=== PATIENT | female | born 1940 | race Caucasian/White ===

== ENCOUNTER 2021-02-12 09:43 | Inpatient (IN) | payer MEDICARE, OTHER ==
--- NOTE | 2021-02-12 19:43 | PCM.HP.2 ---
H&P History of Present Illness - General Date of Service: 02/12/21 - History of Present Illness Initial Comments - Free Text/Narative: 80 y female with pmh of COPD, and HTN who presented to [facility] for a refill of her gabapenin. She was noted to desating to 78% on room air. She was requiring 3 liters of Oxygen to maintain sats of 90%. She had a work up including CBC, BMP, and CXR. She was treated for a COPD exacerbation with solumedrol and duonebs with improvement in her symptoms. Patient does admit to a week long symptoms of productive cough, wheezing and shortness of breath. As she was not able to be weaned off the oxygen patient was directly admitted. - Related Data Allergies/Adverse Reactions: Allergies Allergy/AdvReac Type Severity Reaction Status Date / Time Sulfa (Sulfonamide Allergy Hives Verified 02/12/21 18:01 Antibiotics) Home Medications: Home Meds Albuterol [Ventolin HFA] 2 puff INH Q4HR PRN 02/12/21 [History] Furosemide 0.5 tab PO DAILY 02/12/21 [History] Gabapentin [Neurontin] 300 mg PO DAILY 02/12/21 [History] Levofloxacin 1 tab PO DAILY 02/12/21 [History] Tiotropium Br/Olodaterol HCl [Stiolto Respimat Inhal [place]] 2 puff INH DAILY 02/12/21 [History] amLODIPine [Norvasc] 2.5 mg PO DAILY 02/12/21 [History] predniSONE [Prednisone] 40 mg PO DAILY 02/12/21 [History] Past Medical History Cardiovascular History: Reports: Hypertension Respiratory History: Reports: COPD Gastrointestinal History: Reports: Diverticulosis DIRECTOR COMMUNICATIONS History: Reports: Musculoskeletal History: Reports: None Psychiatric History: Reports: Depression Endocrine/Metabolic History: Reports: None Hematologic History: Reports: Anemia - Infectious Disease History Infectious Disease History: Reports: Chicken Pox - Past Surgical History GI Surgical History: Reports: Cholecystectomy Social & Family History - Tobacco Use Tobacco Use Status *Q: Former Tobacco User Years of Tobacco use: 35 Used Tobacco, but Quit: Yes Month/Year Tobacco Last Used: 08/2015 - Caffeine Use Caffeine Use: Reports: Coffee - Recreational Drug Use Recreational Drug Use: No H&P Review of Systems - Review of Systems: Review Of Systems: Comprehensive ROS is negative, except as noted in HPI. Exam - Exam Exam: See Below - Vital Signs Vital Signs: Last Vital Signs Temp 36.6 C 02/12/21 17:00 Pulse 96 02/12/21 17:00 Resp 18 02/12/21 17:00 BP 145/83 H 02/12/21 17:00 Pulse Ox 93 L 02/12/21 17:02 Weight: 57.606 kg - Exam General: Alert, Oriented HEENT: Mucosa Moist & [place] Neck: Supple, Trachea Midline Lungs: Clear to Auscultation, Normal Respiratory Effort Cardiovascular: Regular Rate, Regular Rhythm GI/Abdominal Exam: Soft, Non-Tender, No Distention Extremities: Non-Tender, No Pedal Edema Skin: Warm, Dry, Intact Neurological: Cranial Nerves Intact - Patient Data Result Diagrams: 02/13/21 05:07 02/13/21 05:07 Sepsis Event Note - Evaluation Sepsis Screening Result: No Definite Risk - Focused Exam Vital Signs: Vital Signs Temp Pulse Resp BP Pulse Ox 02/12/21 17:02 93 L 02/12/21 17:00 36.6 C 96 18 145/83 H 71 L Problem List Initiated/Reviewed/Updated: Yes Orders Last 24hrs: Active Orders 24 hr Category Date Time Status Regular Diet [DIET] Diet 02/12/21 Dinner Active Azithromycin [Zithromax] Med 02/12/21 19:45 Ordered 500 mg PO Q24H Furosemide [Lasix] Med 02/13/21 09:00 Ordered 20 mg PO DAILY Gabapentin [Neurontin] Med 02/13/21 09:00 Ordered 300 mg PO DAILY amLODIPine [Norvasc] Med 02/13/21 09:00 Ordered 2.5 mg PO DAILY methylPREDNISolone Sod Succ [Solu-MEDROL] Med 02/12/21 21:00 Ordered 125 mg IVPUSH Q12H Medication Orders Amlodipine Besylate (Amlodipine 2.5 Mg Tab) 2.5 mg PO DAILY [facility] Azithromycin (Azithromycin 250 Mg Tab) 500 mg PO Q24H [facility] Furosemide (Furosemide 40 Mg Tab) 20 mg PO DAILY [facility] Gabapentin (Gabapentin 300 Mg Cap) 300 mg PO DAILY [facility] Methylprednisolone Sodium Succinate (Methylprednisolone Sodium Succinate 125 Mg/2 Ml Sdv) 125 mg IVPUSH Q12H [facility] Assessment/Plan Comment:: 80 yo female admitted for COPD exacerbation. We will treat with solumedrol, duonebs, and azithromycin.
[2021-02-12] MEDS: Azithromycin 250 MG Tab PO SCH (20:21)
[2021-02-12] MEDS: methylPREDNISolone Sodium Succinate 125 MG/2 ML SDV IVPUSH SCH (20:22)
[2021-02-12] MEDS: Gabapentin 300 MG Cap PO SCH (22:51)
[2021-02-12] MEDS: Albuterol/Ipratropium 3.0-0.5 MG/3 ML Neb Soln NEB SCH (23:01)
[2021-02-13] MEDS: Albuterol/Ipratropium 3.0-0.5 MG/3 ML Neb Soln NEB SCH ×5 (00:09→23:00)
[2021-02-13 05:49] LABS: BLOOD UREA NITROGEN,BUN 18 mg/dL (7.0-18.0); CHLORIDE,CL 103 mmol/L (98-107); GLUCOSE RANDOM 148 mg/dL (74-106); POTASSIUM,K 4.6 mmol/L (3.5-5.1); SODIUM,NA 140 mmol/L (136-145)
--- NOTE | 2021-02-13 09:48 | PCM.PN ---
- General Info Date of Service: 02/13/21 - Review of Systems Systems Review Comment:: shortness of breath has improved - Patient Data Vitals - Most Recent: Last Vital Signs Temp 36.0 C L 02/13/21 05:12 Pulse 78 02/13/21 05:12 Resp 15 02/13/21 05:12 BP 130/66 02/13/21 05:12 Pulse Ox 92 L 02/13/21 05:12 Weight - Most Recent: 57.606 kg I&O - Last 24 Hours: Intake & Output 02/12/21 02/13/21 02/13/21 22:59 06:59 14:59 Intake Total 600 Balance 600 Lab Results Last 24 Hours: Laboratory Results - last 24 hr 02/13/21 02/13/21 Range/Units 05:07 05:07 WBC 8.93 (4.0-11.0) K/uL RBC 5.25 (4.30-5.90) M/uL Hgb 16.6 H (12.0-16.0) g/dL Hct 50.1 H (36.0-46.0) % MCV 95.4 (80.0-98.0) fL MCH 31.6 (27.0-32.0) pg MCHC 33.1 (31.0-37.0) g/dL RDW Std Deviation 45.0 (28.0-62.0) fl RDW Coeff of Jennifer 13 (11.0-15.0) % Plt Count 299 (150-400) K/uL MPV 9.70 (7.40-12.00) fL Neut % (Auto) 92.6 H (48.0-80.0) % Lymph % (Auto) 6.6 L (16.0-40.0) % Wilcox % (Auto) 0.8 (0.0-15.0) % Eos % (Auto) 0.0 (0.0-7.0) % Baso % (Auto) 0.0 (0.0-1.5) % Neut # (Auto) 8.3 H (1.4-5.7) K/uL Lymph # (Auto) 0.6 (0.6-2.4) K/uL Wilcox # (Auto) 0.1 (0.0-0.8) K/uL Eos # (Auto) 0.0 (0.0-0.7) K/uL Baso # (Auto) 0.0 (0.0-0.1) K/uL Nucleated RBC % 0.0 /100WBC Nucleated RBCs # 0 K/uL Sodium 140 (136-145) mmol/L Potassium 4.6 (3.5-5.1) mmol/L Chloride 103 (98-107) mmol/L Carbon Dioxide 35.0 H (21.0-32.0) mmol/L BUN 18 (7.0-18.0) mg/dL Creatinine 0.8 (0.6-1.0) mg/dL Est Cr Clr Drug Dosing 43.73 mL/min Estimated GFR (MDRD) > 60.0 ml/min Glucose 148 H (74-106) mg/dL Calcium 8.6 (8.5-10.1) mg/dL Med Orders - Current: Current Medications Albuterol/Ipratropium (Albuterol/Ipratropium 3.0-0.5 Mg/3 Ml Neb Soln) 3 ml NEB Q6HRRT [facility] Last Admin: 02/13/21 06:00 Dose: 3 ml Documented by: Amlodipine Besylate (Amlodipine 2.5 Mg Tab) 2.5 mg PO DAILY [facility] Azithromycin (Azithromycin 250 Mg Tab) 500 mg PO Q24H [facility] Last Admin: 02/12/21 20:21 Dose: 500 mg Documented by: Furosemide (Furosemide 20 Mg Tab) 20 mg PO DAILY [facility] Gabapentin (Gabapentin 300 Mg Cap) 300 mg PO BEDTIME [facility] Last Admin: 02/12/21 22:51 Dose: 300 mg Documented by: Methylprednisolone Sodium Succinate (Methylprednisolone Sodium Succinate 125 Mg/2 Ml Sdv) 125 mg IVPUSH Q12H [facility] Last Admin: 02/12/21 20:22 Dose: 125 mg Documented by: - Exam General: Alert, Oriented Neck: Supple Lungs: Clear to Auscultation, Normal Respiratory Effort Cardiovascular: Regular Rate, Regular Rhythm GI/Abdominal Exam: Soft, Non-Tender, No Distention Extremities: No Pedal Edema Skin: Warm, Dry, Intact Neurological: No New Focal Deficit - Patient Data Lab Results Last 24 hrs: Laboratory Results - last 24 hr 02/13/21 02/13/21 Range/Units 05:07 05:07 WBC 8.93 (4.0-11.0) K/uL RBC 5.25 (4.30-5.90) M/uL Hgb 16.6 H (12.0-16.0) g/dL Hct 50.1 H (36.0-46.0) % MCV 95.4 (80.0-98.0) fL MCH 31.6 (27.0-32.0) pg MCHC 33.1 (31.0-37.0) g/dL RDW Std Deviation 45.0 (28.0-62.0) fl RDW Coeff of Jennifer 13 (11.0-15.0) % Plt Count 299 (150-400) K/uL MPV 9.70 (7.40-12.00) fL Neut % (Auto) 92.6 H (48.0-80.0) % Lymph % (Auto) 6.6 L (16.0-40.0) % Wilcox % (Auto) 0.8 (0.0-15.0) % Eos % (Auto) 0.0 (0.0-7.0) % Baso % (Auto) 0.0 (0.0-1.5) % Neut # (Auto) 8.3 H (1.4-5.7) K/uL Lymph # (Auto) 0.6 (0.6-2.4) K/uL [place] # (Auto) 0.1 (0.0-0.8) K/uL Eos # (Auto) 0.0 (0.0-0.7) K/uL Baso # (Auto) 0.0 (0.0-0.1) K/uL Nucleated RBC % 0.0 /100WBC Nucleated RBCs # 0 K/uL Sodium 140 (136-145) mmol/L Potassium 4.6 (3.5-5.1) mmol/L Chloride 103 (98-107) mmol/L Carbon Dioxide 35.0 H (21.0-32.0) mmol/L BUN 18 (7.0-18.0) mg/dL Creatinine 0.8 (0.6-1.0) mg/dL Est Cr Clr Drug Dosing 43.73 mL/min Estimated GFR (MDRD) > 60.0 ml/min Glucose 148 H (74-106) mg/dL Calcium 8.6 (8.5-10.1) mg/dL Result Diagrams: 02/13/21 05:07 02/13/21 05:07 Sepsis Event Note - Evaluation Sepsis Screening Result: No Definite Risk - Focused Exam Vital Signs: Vital Signs Temp Pulse Resp BP Pulse Ox Pulse Ox 02/13/21 05:12 36.0 C L 78 15 130/66 92 L 02/12/21 22:47 94 L 02/12/21 22:45 36.4 C 95 16 138/70 94 L - Problem List Review Problem List Initiated/Reviewed/Updated: Yes - My Orders Last 24 Hours: My Active Orders 02/12/21 Dinner Regular Diet [DIET] 02/12/21 20:00 Azithromycin [Zithromax] 500 mg PO Q24H 02/12/21 21:00 methylPREDNISolone Sod Succ [Solu-MEDROL] 125 mg IVPUSH Q12H 02/12/21 22:00 Gabapentin [Neurontin] 300 mg PO BEDTIME 02/12/21 22:45 Oxygen Therapy [RC] PRN Up ad Hanna [RC] ASDIRECTED VTE/DVT Education [RC] PER UNIT ROUTINE Vital Signs [RC] Q4H Albuterol/Ipratropium [DuoNeb 3.0-0.5 MG/3 ML] 3 ml NEB Q6HRRT Sequential Compression Device [OM.PC] Per Unit Routine Resuscitation Status Routine 02/12/21 22:47 Antiembolic Devices [RC] PER UNIT ROUTINE RT Aerosol Therapy [RC] ASDIRECTED 02/13/21 09:00 Furosemide [Lasix] 20 mg PO DAILY amLODIPine [Norvasc] 2.5 mg PO DAILY 02/13/21 09:43 Patient Status [ADT] Routine - Plan Plan:: 80 yo female admitted for acute hypoxic respiratory failure for COPD exacerbation. We will continue solumedrol, duonebs, and azithromycin. Patient satting 85% on RA at rest and 70% while walking. Due to persistent hypoxia will switch to inpatient and patient is more agreeable to stay.
[2021-02-13] MEDS: methylPREDNISolone Sodium Succinate 125 MG/2 ML SDV IVPUSH SCH ×2 (10:06→20:42)
[2021-02-13] MEDS: amLODIPine 2.5 MG Tab PO SCH (10:06)
[2021-02-13] MEDS: Furosemide 20 MG Tab PO SCH (10:06)
[2021-02-13] MEDS: Lisinopril 10 MG Tab PO SCH (11:13)
[2021-02-13] MEDS: Azithromycin 250 MG Tab PO SCH (20:41)
[2021-02-13] MEDS: Gabapentin 300 MG Cap PO SCH (21:58)
[2021-02-14] MEDS: Albuterol/Ipratropium 3.0-0.5 MG/3 ML Neb Soln NEB SCH (06:01)
[2021-02-14 08:13] VITALS: BP 138/63; PULSE 94
[2021-02-14] MEDS: methylPREDNISolone Sodium Succinate 125 MG/2 ML SDV IVPUSH SCH (08:50)
[2021-02-14] MEDS: amLODIPine 2.5 MG Tab PO SCH (08:50)
[2021-02-14] MEDS: Furosemide 20 MG Tab PO SCH (08:51)
[2021-02-14] MEDS: Lisinopril 10 MG Tab PO SCH (08:51)
--- NOTE | 2021-02-14 09:29 | PCM.DCSUM1 ---
Discharge Summary - Discharge Data Discharge Date: 02/14/21 Discharge Disposition: Home, Self-Care 01 Condition: Good - Referral to Home Health Primary Care Physician: Dania Riggins NP - Patient Summary/Data Hospital Course: 80 y female with pmh of COPD, and hypertension who presented to [facility] for a refill of her gabapenin. She was noted to desating to 78% on room air. She was requiring 3 liters of Oxygen to maintain sats of 90%. She had a work up including CBC, BMP, and CXR. She was treated for a COPD exacerbation with solumedrol and duonebs with improvement in her symptoms. Patient did admit to a week long symptoms of productive cough, wheezing and shortness of breath. As she was not able to be weaned off the oxygen patient was directly admitted. She continued treatment of duonebs, solumedrol, and azithromycin. She was eventually weaned of oxygen at rest but would desats to 82% while walking. Patient is requesting discharge home today. She was discharged home on prednisone, and azithromycin. She is to resume her inhalers at home. She is to follow up with [facility]. - Patient Instructions Diet: Regular Diet as Tolerated Activity: As Tolerated - Discharge Plan Prescriptions/Med Rec: Azithromycin 500 mg PO DAILY #3 tablet Home Medications: Home Meds Albuterol [Ventolin HFA] 2 puff INH Q4HR PRN 02/12/21 [History] Furosemide 20 mg PO DAILY 02/12/21 [History] Gabapentin [Neurontin] 300 mg PO DAILY 02/12/21 [History] Tiotropium Br/Olodaterol HCl [Stiolto Respimat Inhal [place]] 2 puff INH DAILY 02/12/21 [History] amLODIPine [Norvasc] 2.5 mg PO DAILY 02/12/21 [History] predniSONE [Prednisone] 40 mg PO DAILY 02/12/21 [History] lisinopriL [Lisinopril] 20 mg PO DAILY 02/13/21 [History] Azithromycin 500 mg PO DAILY #3 tablet 02/14/21 [Rx] Oxygen Therapy Mode: Nasal Cannula Oxygen Flow Rate (L/min): 2 Patient Handouts: Pursed Lip Breathing Referrals: Dania Riggins NP [Primary Care Provider] - 02/23/21 9:30 am - Patient Data Vitals - Most Recent: Last Vital Signs Temp 36.4 C 02/14/21 08:06 Pulse 94 02/14/21 08:06 Resp 18 02/14/21 08:06 BP 138/63 02/14/21 08:51 Pulse Ox 92 L 02/14/21 08:06 Weight - Most Recent: 57.606 kg I&O - Last 24 hours: Intake & Output 02/13/21 02/14/21 02/14/21 22:59 06:59 14:59 Intake Total 820 1150 Output Total 950 0 Balance -130 1150 Med Orders - Current: Current Medications Albuterol/Ipratropium (Albuterol/Ipratropium 3.0-0.5 Mg/3 Ml Neb Soln) 3 ml NEB Q6HRRT [facility] Last Admin: 02/14/21 06:01 Dose: 3 ml Documented by: Amlodipine Besylate (Amlodipine 2.5 Mg Tab) 2.5 mg PO DAILY [facility] Last Admin: 02/14/21 08:50 Dose: 2.5 mg Documented by: Azithromycin (Azithromycin 250 Mg Tab) 500 mg PO Q24H [facility] Last Admin: 02/13/21 20:41 Dose: 500 mg Documented by: Furosemide (Furosemide 20 Mg Tab) 20 mg PO DAILY [facility] Last Admin: 02/14/21 08:51 Dose: 20 mg Documented by: Gabapentin (Gabapentin 300 Mg Cap) 300 mg PO BEDTIME [facility] Last Admin: 02/13/21 21:58 Dose: 300 mg Documented by: Lisinopril (Lisinopril 10 Mg Tab) 20 mg PO DAILY [facility] Last Admin: 02/14/21 08:51 Dose: 20 mg Documented by: Methylprednisolone Sodium Succinate (Methylprednisolone Sodium Succinate 125 Mg/2 Ml Sdv) 125 mg IVPUSH Q12H [facility] Last Admin: 02/14/21 08:50 Dose: 125 mg Documented by:
== END 2021-02-14 11:56 | disposition home or self-care (01) | DRG 190 ==
LOC: MW.MS 09:43 → OBSVTOIN 02-13 09:43 → MW.MS 02-13 13:18
PROVIDERS: ADMIT Internal Medicine; ATTEND Internal Medicine
DX: J44.1 Chronic obstructive pulmonary disease with (acute) exacerbation (principal); J96.01 Acute respiratory failure with hypoxia; I10 Essential (primary) hypertension; K57.90 Diverticulosis of intestine, part unspecified, without perforation or abscess without bleeding; F32.9 Major depressive disorder, single episode, unspecified; Z87.891 Personal history of nicotine dependence; Z88.2 Allergy status to sulfonamides; Z79.52 Long term (current) use of systemic steroids; Z79.899 Other long term (current) drug therapy; D64.9 Anemia, unspecified; Z87.19 Personal history of other diseases of the digestive system; Z90.49 Acquired absence of other specified parts of digestive tract
CPT/HCPCS: 36415; 80048; 85025; A9270 ×2; J2930; 94640; 96374; G0378; G0379; J7620-GY